=== PATIENT | male | born 1995 | race Caucasian/White ===

== ENCOUNTER 2023-11-19 19:27 | Emergency (ER) | payer MEDICAID, SELFPAY ==
--- NOTE | ~2023-11-19 | XR_ITS ---
EXAMINATION: XR chest 2V CLINICAL INFORMATION: Dizziness COMPARISON: No prior chest x-ray available in our system for comparison at the time of this dictation. TECHNIQUE: XR chest 2V, 2 Views Lungs and Bernard[place]: Both lungs are clear. Pleura: Normal. Costophrenic angles are sharp. No pneumothorax. Heart: The heart is normal in size. Mediastinum: The mediastinum is within normal limits.. Bones: Skeletal structures included are normal for patient's age. XR/XR chest 2V IMPRESSION: No radiographic evidence of acute cardiopulmonary disease.
--- NOTE | 2023-11-19 19:31 | ECG_ITS ---
Test Reason : PALPITATIONS Blood Pressure : / mmHG Vent. Rate : 109 BPM Atrial Rate : 109 BPM P-R Int : 160 ms QRS Dur : 082 ms QT Int : 310 ms P-R-T Axes : 039 055 037 degrees QTc Int : 417 ms Sinus tachycardia Otherwise normal ECG No previous ECGs available Referred By: Mandie Connell Electronically Signed By:Kwabena Kasper
--- NOTE | 2023-11-19 19:48 | ED_ITS ---
HPI - General Adult General Chief complaint: Arrhythmia/Palpitations Stated complaint: Low blood pressure/Palpitations Time Seen by Provider: 11/19/23 21:59 Source: patient, RN notes reviewed, old records reviewed and sales correspondence clerk Mode of arrival: ambulatory Limitations: language barrier History of Present Illness HPI narrative: 28-year-old male who denies any past medical history presents for evaluation of ?feeling weak. ? He reports around noon today while he was eating lunch he feels lightheaded felt weak and ?my watch has been telling me my heart rate was high all day. ? He states that he took his blood pressure earlier today and ?it was 108/72. He denies any chest pain, cough, shortness of breath. He endorses nausea without vomiting Denies any abdominal pain Denies fevers, chills Denies any sick contacts, recent travel No other complaints or concerns at this time Related Data Previous Rx's ?Medication ?Instructions ?Recorded ondansetron 4 mg disintegrating 4 mg PO Q8H PRN nausea and 11/19/23 tablet vomiting #20 tabs Allergies Allergy/AdvReac Type Severity Reaction Status Date / Time Unable to Assess Allergy Verified 11/19/23 19:54 Review of Systems 2 Constitutional: Constitutional: Denies body ache(s), Denies chills, Denies fever(s), Denies headache(s), Reports malaise and Reports weakness Eyes: Eyes: Denies blurry vision ENT: Denies headache(s) and Denies sore throat Cardiovascular: Cardiovascular: Denies chest pain, Denies chest pain at rest, Reports rapid heart rate, Denies irregular heart rhythm, Denies palpitations and Denies dyspnea Respiratory: Respiratory: Denies cough and Denies dyspnea Gastrointestinal: Gastrointestinal: Denies abdominal pain, Denies nausea and Denies vomiting Genitourinary: Genitourinary: Denies dysuria Musculoskeletal: Musculoskeletal: Denies back pain Integumentary/Breasts: Skin/Breast: Denies rash Neurologic: Denies headache(s) and Reports weakness Endocrine: Endocrine: Denies palpitations [facility] Social History Social History Advance Directives: No Advance Directives Information Provided: No Physical Exam ED Vital Signs: Vital Signs - 24 hr 11/19/23 19:51 11/19/23 21:45 Temperature 97.9 F 98.2 F Pulse Rate 120 H 102 H Respiratory Rate 14 18 Blood Pressure 119/80 121/76 Pulse Oximetry 95 97 Oxygen Delivery Method Room Air Room Air BMI result Body Mass Index 26.1 Const General: healthy appearing, comfortable, no acute distress, alert and awake Nutritional Appearance: well nourished Orientation/consciousness: patient oriented x3 HENMT Head: Yes normocephalic and Yes atraumatic Throat: Yes posterior oropharynx normal Eyes Eyelids: Yes eyelids normal Conjunctivae: conjunctivae normal Sclerae: sclerae normal Corneas: corneas normal Pupils: Equal, round and reactive pupils present EOM: EOMs intact bilaterally Neck Neck: Yes full ROM Resp Effort & Inspection: normal respiratory effort, able to speak in complete sentences and not labored Cardio Rate: regular rate Rhythm: regular rhythm GI Inspection: No distended Palpation (GI): Soft to palpation, not firm, nontender, no guarding and not rigid Skin General skin exam: elasticity normal Neuro General: patient oriented x3 Cranial nerves: Yes Equal, round and reactive pupils present and Yes Bilaterally intact EOM present Cognition (Neuro): normal cognition Extrem Other: Moving all extremities well without any obvious deformities Course Course Course Narrative: This is a rapid medical exam performed by Sadia Connell NP: Additional HPI, ROS, PE not included below will be deferred to primary provider. Patient is a 28-year-old English speaking male with no pmhx presenting to the emergency department with complaint of dizziness, lightheadedness. Denies chest pain or shortness of breath. Does report palpitations. Denies history of same. Symptoms began while he was at home, first with sweating, then dizziness, then states he turned yellow, had nausea. Denies current nausea. Mild headache. Plan: EKG, labs, cxr, viral swabs Reevaluation(s) Reevaluation #1: Patient is not orthostatic, he is stable for discharge Time: 23:24 Medical Decision Making Medical Decision Making MDM Narrative: 28-year-old male who denies any past medical history presents for evaluation of vague complaints of weakness, nausea fast heart rate. It does not seem as though he is having true palpitations but is just complaining that his watch is reporting a fast heart rate throughout the day. He indicates an jayne on his phone that states his heart rate has been around 104. His regular during my exam but plan for EKG to confirm sinus rhythm. Patient's labs are significant for a white count 12.4 with a left shift. He does not have any abdominal pain or tenderness, lungs are clear to auscultation. This may be viral shift. Patient's chemistries are within normal limits. His troponins undetectable renal function within normal limits, electrolytes are within normal limits. Chest x-ray is clear. I added on a D-dimer which was negative. Plan for orthostatic vital signs Differential Diagnosis Differential Diagnoses: The differential diagnosis associated with the presentation includes Viral syndrome Influenza COVID-19 Bronchitis Palpitations Hyperthyroidism PE less likely Lab Data MDM Lab Attestation statement: I reviewed the patient's lab results. See above 11/19/23 19:49 11/19/23 19:49 Labs: Lab Results 11/19/23 11/19/23 Range/Units 19:49 20:10 WBC 12.4 H (4.8-10.8) X10*3/uL RBC 5.49 (4.60-5.80) X10*6/uL Hgb 16.6 (14.0-18.0) g/dl Hct 45.9 (42.0-52.0) % MCV 83.6 (80.0-98.0) fL MCH 30.2 (27.0-33.0) pg MCHC 36.2 H (31.0-36.0) g/dl RDW 12.0 (11.0-16.0) % Plt Count 202 (160-400) X10*3/uL MPV 11.6 (9.4-12.4) fL Immature Gran % (Auto) 0.3 (0.0-0.4) % Neut % (Auto) 89.8 H (45-73) % Lymph % (Auto) 4.1 L (20-40) % [place] % (Auto) 5.1 (2-11) % Eos % (Auto) 0.5 (0-4) % Baso % (Auto) 0.2 (0-2) % Lymph # (Auto) 0.5 L (1.2-4.9) X10*3/uL [place] # (Auto) 0.6 (0.1-1.2) X10*3/uL Eos # (Auto) 0.1 (0.0-0.4) X10*3/uL Baso # (Auto) 0.0 (0.0-0.2) X10*3/uL Abs Immat Gran (auto) 0.04 H (0.00-0.03) X10*3/uL Absolute Neuts (auto) 11.1 H (2.0-8.3) x10*3/uL Absolute Nucleated RBC 0.000 (0.0-0.012) X10*3/uL Nucleated RBC % (auto) 0.0 (0.0-0.2) /100WBC PT 12.4 (11.1-13.3) SEC INR 1.0 (0.9-1.1) D-Dimer High Sensitivty < 150 NG/ML Sodium 138 (135-145) mmol/L Potassium 3.4 (3.3-5.1) mmol/L Chloride 104 (96-108) mmol/L Carbon Dioxide 23 (22-29) mmol/L Anion Gap 14 (12-20) BUN 13 (9-16) mg/dL Creatinine 0.92 (0.5-1.4) mg/dL Estim Creat Clear Calc 113.5 Estimated GFR > 60 Random Glucose 105 (60-115) mg/dL Calcium 9.2 (8.4-10.2) mg/dL Total Bilirubin 1.0 (0.0-1.0) mg/dL AST 19 (5-37) U/L ALT 26 (0-40) U/L Alkaline Phosphatase 71 (39-117) U/L Troponin I High Sens < 2.7 (<3.5-35.0) ng/L Total Protein 7.8 (6.5-8.0) g/dL Albumin 4.6 (3.5-5.0) g/dL TSH 0.62 (0.32-4.0) uIU/mL Influenza Type A (PCR) NEGATIVE (Negative) Influenza Type B (PCR) NEGATIVE (Negative) RSV RNA Qual (PCR) NEGATIVE (Negative) SARS-CoV-2 RNA (RT-PCR) NEGATIVE (Negative) Independent Interpretation I performed an independent interpretation of an: EKG and Plain X-Ray (No focal infiltrates or effusions) Interpretation: Sinus tachycardia rate of [address] segment changes Discharge Plan Discharge Clinical Impression: Sinus tachycardia, Weakness Patient Disposition: Home, Self-Care Instructions: Tachycardia (ED) Additional Instructions: Your symptoms may be related to a virus. You may use ibuprofen/Tylenol for pain or headaches. Use Zofran as needed for nausea or vomiting Drink lots of fluids Your workup in the ER today was reassuring Follow-up with your primary doctor Prescriptions: New ondansetron 4 mg tablet,disintegrating 4 mg PO Q8H PRN (Reason: nausea and vomiting) Qty: 20 0RF Print Language: English
[2023-11-19 19:51] VITALS: BP 119/80; PULSE 120; RESP 14; TEMP 36.6; O2SAT 95; BMI 26.1
[2023-11-19 19:52] LABS: MANUAL DIFF FLAG NO
[2023-11-19 19:53] LABS: Basophils Percent Auto 0.2 % (0-2); Eosinophils Absolute Auto 0.1 X10*3/uL (0.0-0.4); Eosinophils Percent Auto 0.5 % (0-4); Hematocrit 45.9 % (42.0-52.0); Hemoglobin 16.6 g/dl (14.0-18.0); Imm Gran Abs Auto 0.04 X10*3/uL (0.00-0.03); Imm Gran Pct Auto 0.3 % (0.0-0.4); Lymphocytes Absolute Auto 0.5 X10*3/uL (1.2-4.9); Lymphocytes Percent Auto 4.1 % (20-40); Mean Corpuscular HGB Conc 36.2 g/dl (31.0-36.0); Mean Corpuscular Hemoglobin 30.2 pg (27.0-33.0); Mean Corpuscular Volume 83.6 fL (80.0-98.0); Mean Platelet Volume 11.6 fL (9.4-12.4); Monocytes Absolute Auto 0.6 X10*3/uL (0.1-1.2); Monocytes Percent Auto 5.1 % (2-11); Neutrophils Absolute Auto 11.1 x10*3/uL (2.0-8.3); Neutrophils Percent Auto 89.8 % (45-73); Platelet Count 202 X10*3/uL (160-400); Red Blood Count 5.49 X10*6/uL (4.60-5.80); White Blood Count 12.4 X10*3/uL (4.8-10.8)
[2023-11-19 19:58] LABS: Prothrombin Time 12.4 SEC (11.1-13.3)
[2023-11-19 20:23] LABS: Alanine Aminotransferase 26 U/L (0-40); Albumin Level 4.6 g/dL (3.5-5.0); Alkaline Phosphatase 71 U/L (39-117); Anion Gap 14 (12-20); Aspartate Amino Transferase 19 U/L (5-37); Blood Urea Nitrogen 13 mg/dL (9-16); Calcium 9.2 mg/dL (8.4-10.2); Carbon Dioxide 23 mmol/L (22-29); Chloride 104 mmol/L (96-108); Creatinine Clr Calc Pharmacy 113.5; Estimated Glomerular Filt Rate > 60; Glucose Random 105 mg/dL (60-115); Potassium 3.4 mmol/L (3.3-5.1); Sodium 138 mmol/L (135-145); Total Protein 7.8 g/dL (6.5-8.0)
[2023-11-19 20:32] LABS: Troponin-I High Sensitivity < 2.7 ng/L (<3.5-35.0)
[2023-11-19 20:38] LABS: TSH reflex Free T4 0.62 uIU/mL (0.32-4.0)
[2023-11-19 21:01] LABS: Influenza A PCR NEGATIVE (Negative); Influenza B PCR NEGATIVE (Negative); Resp Syncy Virus RNA Qual PCR NEGATIVE (Negative); SARS COV2 PCR INHOUSE NEGATIVE (Negative)
[2023-11-19 21:45] VITALS: BP 121/76; PULSE 102; RESP 18; TEMP 36.8; O2SAT 97
[2023-11-19 22:24] LABS: D Dimer High Sensitivity < 150 NG/ML
[2023-11-19 23:11] VITALS: BP 121/76; PULSE 99
[2023-11-19 23:23] VITALS: BP 124/85; PULSE 109
[2023-11-19 23:24] VITALS: BP 111/80; PULSE 116
[2023-11-19 23:56] VITALS: BP 111/80; PULSE 113; RESP 16; TEMP 36.6; O2SAT 97
[2023-11-19] MEDS: Ondansetron ODT 4 MG TAB.RAPDIS TRANSLINGU (23:58)
[2023-11-19] MEDS: Ibuprofen 600 MG TABLET PO (23:58)
== END 2023-11-20 00:04 | disposition home or self-care (01) ==
PROVIDERS: Physician Assistant; Registered Nurse Emergency; Emergency Provider Internal Medicine
DX: R00.0 Tachycardia, unspecified (principal); I49.9 Cardiac arrhythmia, unspecified; R00.2 Palpitations; R53.1 Weakness; Z11.52 Encounter for screening for COVID-19; Z20.822 Contact with and (suspected) exposure to COVID-19; Z79.899 Other long term (current) drug therapy
CPT/HCPCS: 0241U; 36415; 71046; 80053; 84443; 84484; 85025; 85379; 85610; 93005; 99283; 99284

== ENCOUNTER → 2023-11-19 19:31 | Outpatient (BNV) | payer MEDICAID, SELFPAY | PROVIDERS: Emergency Provider Internal Medicine; Visit Provider Internal Medicine Cardiovascular Disease | DX: R00.0 Tachycardia, unspecified (principal) | CPT/HCPCS: 93010 ==

== ENCOUNTER 2024-04-12 12:34 | Inpatient (IN) | payer MEDICAID, OTHER, SELFPAY ==
[2024-04-12] VITALS (7 sets, daily range): BP systolic 109–127; BP diastolic 56–76; PULSE 72–107; RESP 14–20; TEMP 36.2–37.1; O2SAT 97–99; BMI 25.3; BMI 23.7
--- NOTE | 2024-04-12 12:36 | ED.GENADULT ---
HPI - General Adult General Chief complaint: GI Bleed Stated complaint: black [id number] Time Seen by Provider: 04/12/24 14:08 Source: patient Mode of arrival: ambulatory Limitations: no limitations and language barrier History of Present Illness ED Provider: Ángel Taylor PA-C HPI narrative: 28-year-old [place]-speaking male with history of peptic ulcer disease in the past requiring blood transfusion and hospitalization in [place] in 2020 who presents to the ER for evaluation of melena and coffee-ground emesis that started yesterday. He states he had 2 dark brown bowel movements yesterday. This morning he woke up at 3am and had a large volume black bowel movement and an episode of dark, coffee ground vomiting. He felt flushed, with cold sweats and tingling in his hands. He reported lightheadedness, dizziness and shortness of breath. No abdominal pain. No BMs since overnight. He denies any alcohol use. He reports he takes occasional Advil, not daily. He has been off of his omeprazole. complaint: melena, coffee ground emesis Onset (ago): day(s) (1) Severity: moderate Relieving factors: none Exacerbating factors: none Associated symptoms: malaise Treatments prior to arrival: none Related Data Previous Rx's ?Medication ?Instructions ?Recorded ondansetron 4 mg disintegrating 4 mg PO Q8H PRN nausea and 11/19/23 tablet vomiting #20 tabs Allergies Allergy/AdvReac Type Severity Reaction Status Date / Time No Known Allergies Allergy Verified 04/12/24 12:38 Review of Systems Review of Systems: Yes all other systems are reviewed and are negative PMFSH Past Medical History Medical History PUD (peptic ulcer disease) Social History Social History Advance Directives: No Do you have a plan to hurt others: No Plan Physical Exam ED Vital Signs: Vital Signs - 24 hr 04/12/24 12:36 04/12/24 14:15 04/12/24 14:15 Temperature 98.2 F 98.7 F Pulse Rate 103 H 87 87 Respiratory Rate 18 18 Blood Pressure 120/76 111/70 112/67 Pulse Oximetry 98 99 Oxygen Delivery Method Room Air Room Air 04/12/24 14:16 04/12/24 14:17 Temperature Pulse Rate 97 107 H Respiratory Rate Blood Pressure 112/69 112/73 Pulse Oximetry Oxygen Delivery Method BMI result Body Mass Index 25.3 Appearance: Alert. Pale. Oriented X3. No acute distress. Head: normocephalic, atraumatic. Eyes: Pupils equal, round and reactive to light. ENT: Pharynx normal. No tonsillar swelling or exudate. Neck: Normal inspection. Neck supple. CVS: Normal heart rate and rhythm. Pulses normal. Respiratory: No respiratory distress. Breath sounds normal. Abdomen: Soft and nontender. +BS x4 Skin: Skin warm and dry. Normal skin color. Normal skin turgor. No rashes. Extremities: No lower extremity edema. No joint swelling. Neuro/psych: Oriented X 3. No motor deficit. No sensory deficit. CN II-XII intact. Normal speech and cognition. Course Course Course Narrative: Patient is a 28-year-old [place] speaking male presenting to the emergency department with complaint of dark black stool since yesterday morning, this morning was vomiting coffee ground emesis. Denies abdominal pain. [place] cramping, tingling to hands, dizziness. States previously had similar symptoms in [facility], and was hospitalized for 8 days. Plan: labs including T&S Medications Administered Discontinued Medications Generic Name Dose Route Start Last Admin Trade Name Freq PRN Reason Stop Dose Admin Pantoprazole Sodium 40 mg 04/12/24 14:09 04/12/24 14:33 Pantoprazole Sodium 40 Mg/10 Ml Vial IVPUSH 04/12/24 14:10 40 mg ONCE ONE Administration Procedures EJ/Peripheral Line Arm R: Time Out Performed: Yes Skin Cleansed in Sterile Fashion: Yes Size (gauge): 18 IV Secured and Dressing Applied: Yes Patient Tolerated Procedure: no complications Medical Decision Making Medical Decision Making MDM Narrative: 28-year-old male with history of peptic ulcer disease, reportedly a strangulated ulcer that required EGD, transfusion, an 8 day hospitalization and [place] back in 2020 presents to the ER for evaluation of melena x3 and coffee-ground emesis x1. Symptoms started yesterday. Last large volume melanotic episode was at 03:00 today. Patient has a photo of the bowel movement and this was reviewed. Digital rectal exam today is revealing for a scant amount of black stool. His hemoglobin is down to 13.5 from a baseline of 16.6 in November. HR 107 and BP stable. Will plan to admit to the hospital for monitoring, trending H/H. GI consulted. IV PPI given. 18G PIV in the right AC placed. vendor management consultant used to discuss plan and patient is in agreement. All questions were answered. Differential Diagnosis Differential Diagnoses: The differential diagnosis associated with the presentation includes UGIB 2/2 PUD, gastritis, AVM, [place] lesion, varices Admission/Observation Consideration of admission/observation: Escalation of care including admission/observation considered Consult Healthcare Provider Management of the patient was discussed with: Hospitalist and Comb Setter Dr. Ortiz consulted Lab Data MDM Lab Attestation statement: I reviewed the patient's lab results. Acute anemia consistent with acute blood loss compared to prior. Elevated BUN consistent with upper GI bleed 04/12/24 12:44 04/12/24 12:44 Labs: Lab Results 04/12/24 04/12/24 Range/Units 12:44 15:18 WBC 9.6 (4.8-10.8) X10*3/uL RBC 4.50 L (4.60-5.80) X10*6/uL Hgb 13.5 L (14.0-18.0) g/dl Hct 37.8 L (42.0-52.0) % MCV 84.0 (80.0-98.0) fL MCH 30.0 (27.0-33.0) pg MCHC 35.7 (31.0-36.0) g/dl RDW 12.0 (11.0-16.0) % Plt Count 222 (160-400) X10*3/uL MPV 11.6 (9.4-12.4) fL Immature Gran % (Auto) 0.3 (0.0-0.4) % Neut % (Auto) 77.4 H (45-73) % Lymph % (Auto) 16.7 L (20-40) % [place] % (Auto) 5.1 (2-11) % Eos % (Auto) 0.3 (0-4) % Baso % (Auto) 0.2 (0-2) % Lymph # (Auto) 1.6 (1.2-4.9) X10*3/uL [place] # (Auto) 0.5 (0.1-1.2) X10*3/uL Eos # (Auto) 0.0 (0.0-0.4) X10*3/uL Baso # (Auto) 0.0 (0.0-0.2) X10*3/uL Abs Immat Gran (auto) 0.03 (0.00-0.03) X10*3/uL Absolute Neuts (auto) 7.4 (2.0-8.3) x10*3/uL Absolute Nucleated RBC 0.000 (0.0-0.012) X10*3/uL Nucleated RBC % (auto) 0.0 (0.0-0.2) /100WBC PT 12.8 H (10.9-12.4) SEC INR 1.1 (0.9-1.1) APTT 31.4 (26.0-36.8) SEC Sodium 139 (135-145) mmol/L Potassium 4.1 D (3.3-5.1) mmol/L Chloride 107 (96-108) mmol/L Carbon Dioxide 23 (22-29) mmol/L Anion Gap 13 (12-20) BUN 28 H (9-16) mg/dL Creatinine 0.88 (0.5-1.4) mg/dL Estim Creat Clear Calc 118.7 Estimated GFR > 60 Random Glucose 141 H (60-115) mg/dL Calcium 9.1 (8.4-10.2) mg/dL Total Bilirubin 0.6 (0.0-1.0) mg/dL AST 11 (5-37) U/L ALT 16 (0-40) U/L Alkaline Phosphatase 55 (39-117) U/L Total Protein 7.3 (6.5-8.0) g/dL Albumin 4.4 (3.5-5.0) g/dL Stool Occult Blood POSITIVE (NEGATIVE) External Record Review External record reviewed: Prior outpatient labs Tests considered The following testing was considered but not selected: GI bleed CT scan considered however low suspicion for lower GI bleed or active GI bleed at this time Prescription Management I considered prescription management with: Other (PPI, antiemetics) Chronic Conditions Patient?s care impacted by: Other (PUD) Critical Care Time Critical Care Time Critical Care Time: Yes Total Critical Care Time: 36 Attestation: I have personally provided critical care time exclusive of time spent on separately billable procedures. Time includes review of lab data, radiology results, discussion with consultants, and monitoring for potential decompensation. Intervention performed as documented. Discharge Plan Discharge Clinical Impression: Melena, Coffee ground emesis, Acute blood loss anemia Patient Disposition: Admitted As Inpatient
[2024-04-12 12:48] LABS: MANUAL DIFF FLAG NO
[2024-04-12 12:50] LABS: Basophils Percent Auto 0.2 % (0-2); Eosinophils Percent Auto 0.3 % (0-4); Hematocrit 37.8 % (42.0-52.0); Hemoglobin 13.5 g/dl (14.0-18.0); Imm Gran Abs Auto 0.03 X10*3/uL (0.00-0.03); Imm Gran Pct Auto 0.3 % (0.0-0.4); Lymphocytes Absolute Auto 1.6 X10*3/uL (1.2-4.9); Lymphocytes Percent Auto 16.7 % (20-40); Mean Corpuscular HGB Conc 35.7 g/dl (31.0-36.0); Mean Platelet Volume 11.6 fL (9.4-12.4); Monocytes Absolute Auto 0.5 X10*3/uL (0.1-1.2); Monocytes Percent Auto 5.1 % (2-11); Neutrophils Absolute Auto 7.4 x10*3/uL (2.0-8.3); Neutrophils Percent Auto 77.4 % (45-73); Platelet Count 222 X10*3/uL (160-400); White Blood Count 9.6 X10*3/uL (4.8-10.8)
[2024-04-12 12:55] LABS: INTERNATIONAL NORM RATIO 1.1 (0.9-1.1); Prothrombin Time 12.8 SEC (10.9-12.4)
[2024-04-12 12:58] LABS: Partial Thromboplastin Time 31.4 SEC (26.0-36.8)
[2024-04-12 13:07] LABS: Alanine Aminotransferase 16 U/L (0-40); Albumin Level 4.4 g/dL (3.5-5.0); Alkaline Phosphatase 55 U/L (39-117); Anion Gap 13 (12-20); Aspartate Amino Transferase 11 U/L (5-37); Bilirubin Total 0.6 mg/dL (0.0-1.0); Blood Urea Nitrogen 28 mg/dL (9-16); Calcium 9.1 mg/dL (8.4-10.2); Carbon Dioxide 23 mmol/L (22-29); Chloride 107 mmol/L (96-108); Creatinine Clr Calc Pharmacy 118.7; Estimated Glomerular Filt Rate > 60; Glucose Random 141 mg/dL (60-115); Potassium 4.1 mmol/L (3.3-5.1); Sodium 139 mmol/L (135-145); Total Protein 7.3 g/dL (6.5-8.0)
[2024-04-12] MEDS: Pantoprazole Sodium 40 MG/10 ML VIAL IVPUSH ×2 (14:33→21:21)
--- NOTE | 2024-04-12 14:35 | PC.NURSE ---
18gIV placed in the right AC - patent/intact. medication administered per provider order. ED provider bedside speaking w/ pt about plan of care. pt aware of plan of care in regards to being admitted/having general surgery consult completed. pt otherwise resting in no apparent distress. no sob/wob noted. respirations even/unlabored. plan of care ongoing. call garcia placed within reach.
--- NOTE | 2024-04-12 15:23 | P.HPHOSP_ITS ---
History of Present Illness Date of Service: 04/12/24 Chief Complaint: Hematemesis , Melena A 28 years old male with PMH of PUD who is not taking Omeprazole presenting with 1 day of Hematemesis and MElena. The patient reports having similar incident in 2020 that required blood transfusion and EGD showing PUD at that time. treated with PPI with good response but for a while now he stopped taking PPI and has been taking Advil. In ED found to have positive occult stool and drop in Hb from around 16 to 13. Admitted for further work ip and management. Review of Systems 2 Review of Systems: No fever, chills or weakness No chest pain, palpitation No shortness of breath or coughing reporting abdominal pain, nausea and episode of vomiting No urinary symptoms No any rash or wounds PMFSH Medical History PUD (peptic ulcer disease) Surgical History (Updated 04/13/24 @ 14:44 by Ama Espinal RN) H/O endoscopy Social History Household Members: Spouse Housing: Apartment Are you a primary health care sanitary technician to a significant other at home: No Do you presently have visiting nurse or other home services: No Patient Tobacco Use Status: Never used Tobacco Smoked in Last 30 Days: No Patient Interested in Nicotine Replacement: No Patient Given Instructions on How to Stop Smoking: No Second Hand Smoke Exposure: No Use of substances other than those prescribed or required for medical reasons: No Currently Displaying Signs/Symptoms of Drug Intoxication Withdrawal: No Any prior treatment program specific to substance use: No Have you been hit, kicked, punched, or otherwise hurt by someone within the past year? If so, by whom?: No Do you feel safe in your current relationship?: Yes Is there a partner from a previous relationship who is making you feel unsafe now?: No Are you made to feel afraid or neglected: No Are you DNR?: No Advance Directives: No Advance Directives Information Provided: No (Declined) Advance Directives on File: No Do you have a plan to hurt others: No Plan Recently lost weight without trying: No How much weight loss: Not applicable Eating poorly because of decreased appetite: No Nutrition screen score: 0 Nutrition Risks: No Nutritional Risk Poor oral hygiene: No service: No Meds Allergies Allergy/AdvReac Type Severity Reaction Status Date / Time No Known Allergies Allergy Verified 04/13/24 14:45 Home Medications ?Medication ?Instructions ?Recorded ?Confirmed ?Last Taken ?Type No Known Home Meds 04/12/24 04/12/24 Unknown History Physical Exam 2 Vital Signs and Narrative: Vital Signs: Last Vital Signs Temp 98.7 F 04/12/24 14:15 Pulse 107 H 04/12/24 14:17 Resp 18 04/12/24 14:15 BP 112/73 04/12/24 14:17 Pulse Ox 99 04/12/24 14:15 O2 Del Method Room Air 04/12/24 14:15 BMI result Body Mass Index 25.3 Const: Other: Constitutional : Awake, interactive, not in distress Neck : Normal inspection, Supple Cardiovascular : RRR, no JVP, no lower extremity edema Respiratory : good bilateral air entry, no crackles, wheezes or rhonchi Gastrointestinal: soft, lax, Normal bowel sounds, Non tender Skin : Warm, Dry Neurological : Alert & oriented x3, No focal deficit Results Labs 04/13/24 05:57 04/13/24 05:57 Labs: Laboratory Results - last 24 hr 04/12/24 12:44 MCV 84.0 MCH 30.0 MCHC 35.7 RDW 12.0 Plt Count 222 MPV 11.6 Immature Gran % (Auto) 0.3 Neut % (Auto) 77.4 H Lymph % (Auto) 16.7 L [place] % (Auto) 5.1 Eos % (Auto) 0.3 Baso % (Auto) 0.2 Lymph # (Auto) 1.6 [place] # (Auto) 0.5 Eos # (Auto) 0.0 Baso # (Auto) 0.0 Abs Immat Gran (auto) 0.03 Absolute Neuts (auto) 7.4 Absolute Nucleated RBC 0.000 Nucleated RBC % (auto) 0.0 PT 12.8 H INR 1.1 APTT 31.4 Anion Gap 13 Estim Creat Clear Calc 118.7 Estimated GFR > 60 Random Glucose 141 H Calcium 9.1 Total Bilirubin 0.6 AST 11 ALT 16 Alkaline Phosphatase 55 Total Protein 7.3 Albumin 4.4 Assessment and Plan (1) Coffee ground emesis: Status: Acute (2) Melena: Status: Acute (3) Acute blood loss anemia: Status: Acute Plan A 28 years old male with PMH of PUD who is not taking Omeprazole presenting with 1 day of Hematemesis and MElena. Acute blood loss anemia 2/2 upper GIB w Hematemesis Start PPI IV Carafate QID IVF NPO GI consult Zofran for nausea DVT PPx Early ambulation, SCDs The patient will need 2 overnight hospital stay given GI bleed, need for EGD and possible need for blood transfusion. Quality Stroke Does the patient have a stroke diagnosis?: No VTE Prior VTE?: No VTE Risk Level:: Medical - low VTE Device Contraindication: N/A - Device Ordered VTE Drug Contraindication: Treatment Not Indicated
[2024-04-12 15:26] LABS: OBS Int Ctl Valid YES; OBS1 POSITIVE (NEGATIVE)
[2024-04-12] MEDS: 0.9 % Sodium Chloride Flush 3 ML SYRINGE IVFLUSH (15:40)
[2024-04-12] MEDS: ondansetron HCL 4 MG/2 ML VIAL IVPUSH (15:40)
[2024-04-12] MEDS: Lactated Ringers 1,000 ML 80 ML IVCONT (15:41)
--- NOTE | 2024-04-12 15:41 | PC.NURSE ---
IVF/medication administered per provider order. pt pending admission at this time. plan of care ongoing.
[2024-04-12] MEDS: Sucralfate 1 GM TABLET PO ×2 (16:25→21:21)
--- NOTE | 2024-04-12 19:13 | PHA.MEDREC ---
Addendum entered by Kwasi Matthews 04/12/24 19:14: Reviewed Original Note: Pharmacy Consult ? Medication Reconciliation Pharmacy has completed the medication reconciliation. Spoke to patient through alto singer service (Maxine) patient states he is not taking any medication.
[2024-04-13] VITALS (10 sets, daily range): BP systolic 94–117; BP diastolic 42–75; PULSE 62–78; RESP 14–20; TEMP 36–37.2; O2SAT 97–100
--- NOTE | 2024-04-13 01:40 | CONS_ITS ---
DATE OF SERVICE: 04/12/2024 REFERRING PHYSICIAN: QUIQUE Jones REASON FOR CONSULTATION: Melena and coffee-ground emesis. HISTORY OF PRESENT ILLNESS: The patient is a 28-year-old male, who was admitted to the hospital after presenting to the emergency room with 1 day of black stools and coffee-grounds emesis. This started at 3:00 a.m. this morning with 1 episode of coffee-ground vomiting followed by a black stool. He presented to the emergency room, where he was evaluated. He describes a history of previous peptic ulcer disease 3 years ago, treated endoscopically. He did not require surgery. He had been on omeprazole, but currently stop this at some point and uses Advil on a p.r.n. basis. He denies tobacco and alcohol use. PAST MEDICAL HISTORY: Peptic ulcer disease as above. CURRENT MEDICATIONS: His current medication list is reviewed in the chart. ALLERGIES: THERE ARE NONE REPORTED. FAMILY HISTORY: Negative for upper GI malignancy. SOCIAL HISTORY: He denies substance abuse. REVIEW OF SYSTEMS: SKIN: No pruritus. HEENT: Negative. CARDIOPULMONARY: He denies shortness of breath or chest pain. GASTROINTESTINAL: As above. GENITOURINARY: Negative. NEUROPSYCHIATRIC: Negative. PHYSICAL EXAMINATION: GENERAL: Shows a pleasant male, lying in bed. VITAL SIGNS: Reviewed in electronic medical record and are stable. SKIN: Anicteric. Multiple tattoos are present. HEENT: Shows no scleral icterus. NECK: Without lymphadenopathy or thyromegaly. LUNGS: Clear. HEART: Shows a regular rate and rhythm. S1, S2. No murmur. ABDOMEN: Soft without focal masses or tenderness. Bowel sounds are present. No organomegaly is noted. EXTREMITIES: Without edema. LABORATORY DATA: Reviewed. IMPRESSION: Coffee-ground emesis with melena. This appears consistent with an upper GI bleed. Currently, he appears stable without any active bleeding. His hematocrit was 37.8 down slightly from 45.9 in November of this year. He has not had any further bleeding since admission. I discussed endoscopy with him. This will be arranged for tomorrow. He understands risks and benefits and agrees to proceed. In the interim, I agree with monitoring his hematocrit and treating him with a proton pump inhibitor. Thanks for asking me to see him. I will follow him in the hospital with you. MD DORI Alberts/BREANA / [phone]
[2024-04-13] MEDS: Lactated Ringers 1,000 ML 80 ML IVCONT ×3 (02:32→17:39)
[2024-04-13 06:41] LABS: MANUAL DIFF FLAG NO
[2024-04-13 07:02] LABS: Alanine Aminotransferase 12 U/L (0-40); Albumin Level 3.5 g/dL (3.5-5.0); Alkaline Phosphatase 44 U/L (39-117); Anion Gap 9 (12-20); Aspartate Amino Transferase 12 U/L (5-37); Bilirubin Total 0.7 mg/dL (0.0-1.0); Blood Urea Nitrogen 15 mg/dL (9-16); Calcium 8.4 mg/dL (8.4-10.2); Carbon Dioxide 26 mmol/L (22-29); Chloride 107 mmol/L (96-108); Creatinine Clr Calc Pharmacy 118.7; Estimated Glomerular Filt Rate > 60; Glucose Random 95 mg/dL (60-115); Potassium 3.4 mmol/L (3.3-5.1); Sodium 139 mmol/L (135-145); Total Protein 5.7 g/dL (6.5-8.0)
[2024-04-13 07:04] LABS: Basophils Percent Auto 0.5 % (0-2); Eosinophils Absolute Auto 0.1 X10*3/uL (0.0-0.4); Eosinophils Percent Auto 2.2 % (0-4); Hematocrit 32.2 % (42.0-52.0); Imm Gran Abs Auto 0.02 X10*3/uL (0.00-0.03); Imm Gran Pct Auto 0.3 % (0.0-0.4); Lymphocytes Absolute Auto 2.4 X10*3/uL (1.2-4.9); Lymphocytes Percent Auto 36.6 % (20-40); Mean Corpuscular HGB Conc 34.2 g/dl (31.0-36.0); Mean Corpuscular Hemoglobin 29.3 pg (27.0-33.0); Mean Corpuscular Volume 85.9 fL (80.0-98.0); Mean Platelet Volume 11.8 fL (9.4-12.4); Monocytes Absolute Auto 0.5 X10*3/uL (0.1-1.2); Monocytes Percent Auto 7.9 % (2-11); Neutrophils Absolute Auto 3.4 x10*3/uL (2.0-8.3); Neutrophils Percent Auto 52.5 % (45-73); Platelet Count 166 X10*3/uL (160-400); Red Blood Count 3.75 X10*6/uL (4.60-5.80); Red Cell Distribution Width 12.1 % (11.0-16.0); White Blood Count 6.5 X10*3/uL (4.8-10.8)
--- NOTE | 2024-04-13 09:10 | MHC.CM.PN ---
CM met with Patient and his Friend at bedside, with the assist of a [facility] [place] Weight Analyst. 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 Home/self care is the goal and CM has initiated and will follow for dc planning. Patient has no PCP nor HCP.
[2024-04-13] MEDS: Pantoprazole Sodium 40 MG/10 ML VIAL IVPUSH (10:48)
--- NOTE | 2024-04-13 10:59 | P.PNGI_ITS ---
Subjective Subjective Date of Service: 04/13/24 Interval History: no bleeding overnight no abd pain Critical Care Time (minutes): 0 Physical Exam 2 Vital Signs: Vital Signs: Last Vital Signs Temp 98.5 F 04/13/24 07:20 Pulse 71 04/13/24 07:20 Resp 18 04/13/24 07:20 BP 104/56 L 04/13/24 07:20 Pulse Ox 97 04/13/24 07:20 O2 Del Method Room Air 04/13/24 07:20 BMI result Body Mass Index 23.7 Const: Other: awake and alert GI: Other: abdomen is soft and nontender Objective Data Labs 04/13/24 05:57 04/13/24 05:57 Procedures Date of Service Date of Service: 04/13/24 Progress Note: A&P Assessment and plan (1) Melena: Status: Acute Assessment and Plan: appears stable He is aware of risks and benefits of endoscopy and agrees to proceed. Time Spent With Patient Time: Total time managing care of this patient today ____ minutes. Quality Stroke Does the patient have a stroke diagnosis?: No VTE Prior VTE?: No VTE Risk Level:: Medical - moderate - high VTE Device Contraindication: N/A - Device Ordered VTE Drug Contraindication: Treatment Not Indicated
--- NOTE | 2024-04-13 14:49 | PC.NURSE ---
Patient arrived to [facility] with one PRN angio, #18 right AC. Site asymptomatic, flushed well.
--- NOTE | 2024-04-13 14:52 | P.CONAN_ITS ---
HPI - Anesthesia Eval Consult details Narrative: 28 yo M presenting for EGD. Admitted for coffee ground emesis. History of ulcers. PMF Active Problems Active Problems: All Active Problems Acute blood loss anemia (Acute) Coffee ground emesis (Acute) Melena (Acute) Past Medical History Medical History PUD (peptic ulcer disease) Family History Family history of problems with anesthesia: No Surgical History Surgical History (Updated 04/13/24 @ 14:44 by Ama Espinal RN) H/O endoscopy History of Problems with Anesthesia: No Social History Social History Household Members: Spouse Housing: Apartment Are you a primary wound care physician to a significant other at home: No Do you presently have visiting nurse or other home services: No Patient Tobacco Use Status: Never used Tobacco Smoked in Last 30 Days: No Patient Interested in Nicotine Replacement: No Patient Given Instructions on How to Stop Smoking: No Second Hand Smoke Exposure: No Use of substances other than those prescribed or required for medical reasons: No Currently Displaying Signs/Symptoms of Drug Intoxication Withdrawal: No Any prior treatment program specific to substance use: No Have you been hit, kicked, punched, or otherwise hurt by someone within the past year? If so, by whom?: No Do you feel safe in your current relationship?: Yes Is there a partner from a previous relationship who is making you feel unsafe now?: No Are you made to feel afraid or neglected: No Are you DNR?: No Advance Directives: No Advance Directives Information Provided: No (Declined) Advance Directives on File: No Do you have a plan to hurt others: No Plan Recently lost weight without trying: No How much weight loss: Not applicable Eating poorly because of decreased appetite: No Nutrition screen score: 0 Nutrition Risks: No Nutritional Risk Poor oral hygiene: No service: No Meds Allergies Allergy/AdvReac Type Severity Reaction Status Date / Time No Known Allergies Allergy Verified 04/13/24 14:45 Active Medications: Current Medications Acetaminophen (Acetaminophen 325 Mg Tablet) 650 mg PO Q6H PRN PRN Reason: Pain, Mild (Pain Scale 1-3), fever or headache Calcium Carbonate (Calcium Carbonate 750 Mg Tab.Chew) 750 mg PO Q4H PRN PRN Reason: Heartburn Lactated Ringer's (Lr) 1,000 mls @ 80 mls/hr IVCONT .[id number] [facility] Last Admin: 04/13/24 02:32 Dose: 80 mls/hr Lactated Ringer's (Lr) 1,000 mls @ 80 mls/hr IVCONT .[id number] [facility] Magnesium Hydroxide (Milk Of Magnesia 30 Ml Oral.Susp) 30 ml PO DAILY PRN PRN Reason: Constipation Melatonin (Melatonin 3 Mg Tablet) 6 mg PO BEDTIME PRN PRN Reason: Insomnia Ondansetron HCl (Ondansetron Hcl 4 Mg/2 Ml Vial) 4 mg IVPUSH Q8H PRN PRN Reason: Nausea and Vomiting Pantoprazole Sodium (Pantoprazole Sodium 40 Mg/10 Ml Vial) 40 mg IVPUSH Q12H [facility] Last Admin: 04/13/24 10:48 Dose: 40 mg Sodium Chloride (0.9 % Sodium Chloride Flush 3 Ml Syringe) 3 ml IVFLUSH QSHIFT [facility] Last Admin: 04/13/24 07:59 Dose: Not Given Sucralfate (Sucralfate 1 Gm Tablet) 1 gm PO QIDACHS [facility] Last Admin: 04/13/24 10:50 Dose: Not Given Home Medications ?Medication ?Instructions ?Recorded ?Confirmed ?Last Taken ?Type No Known Home Meds 04/12/24 04/12/24 Unknown History Exam Exam Date and Time: 04/13/24 1450 Height,Weight and Vital Signs: Height 5 ft 8.11 in Weight 70.9 kg Last Vital Signs Temp 97.2 F 04/13/24 14:40 Pulse 74 04/13/24 14:40 Resp 16 04/13/24 14:40 BP 110/59 L 04/13/24 14:40 Pulse Ox 98 04/13/24 14:40 O2 Del Method Room Air 04/13/24 14:40 Pertinent Lab Results Pertinent Lab Results: Laboratory Tests 04/12/24 04/12/24 04/13/24 12:44 15:18 05:57 WBC 9.6 6.5 RBC 4.50 L 3.75 L Hgb 13.5 L 11.0 L Hct 37.8 L 32.2 L MCV 84.0 85.9 MCH 30.0 29.3 MCHC 35.7 34.2 RDW 12.0 12.1 Plt Count 222 166 D MPV 11.6 11.8 Immature Gran % (Auto) 0.3 0.3 Neut % (Auto) 77.4 H 52.5 Lymph % (Auto) 16.7 L 36.6 [place] % (Auto) 5.1 7.9 Eos % (Auto) 0.3 2.2 Baso % (Auto) 0.2 0.5 Lymph # (Auto) 1.6 2.4 [place] # (Auto) 0.5 0.5 Eos # (Auto) 0.0 0.1 Baso # (Auto) 0.0 0.0 Abs Immat Gran (auto) 0.03 0.02 Absolute Neuts (auto) 7.4 3.4 Absolute Nucleated RBC 0.000 0.000 Nucleated RBC % (auto) 0.0 0.0 PT 12.8 H INR 1.1 APTT 31.4 Sodium 139 139 Potassium 4.1 D 3.4 Chloride 107 107 Carbon Dioxide 23 26 Anion Gap 13 9 L BUN 28 H 15 Creatinine 0.88 0.88 Estim Creat Clear Calc 118.7 118.7 Estimated GFR > 60 > 60 Random Glucose 141 H 95 Calcium 9.1 8.4 D Total Bilirubin 0.6 0.7 AST 11 12 ALT 16 12 Alkaline Phosphatase 55 44 Total Protein 7.3 5.7 L Albumin 4.4 3.5 Stool Occult Blood POSITIVE Blood Type O Positive Antibody Screen NEGATIVE Airway Mallampati Class: I TM Dist: >3cm Neck ROM: Full Loose/Missing/Broken Teeth: No Heart: S1S2 Lungs: CTAB Assessment and Plan Assessment Anesthesia Assessment: Anesthesia Plan Discussed and Chart Reviewed Final Anesthetic Review Family History of Problems with Anesthesia: No History of Problems with Anesthesia: No NPO: Yes ASA Class: II Final Preanesthetic Review: No Changes in Pt Med Stat, Meds/Allgs Chart Reviewed, Consent Obtained/Reviewed and Anes Risks/Benef Reviewed Patient Risk: Low Procedure Risk: Low Anesthetic Plan Anesthetic Plan: MAC: and Agree w/ Assess. and Plan Disposition: Standard PACU
--- NOTE | 2024-04-13 15:14 | MHC.SHP ---
Pre-Procedural Eval Section A - 24 Hr Update-Section A only Date of Service: 04/13/24 The patient is an INPATIENT: Yes The patient has been examined within 24 hours of the surgical procedure. The History & Physical has been completed within 30 days and I have reviewed it.: Yes Section B - Complete if H&P > 30 days Chief Complaint: coffee grounds emesis Allergies: Allergies Allergy/AdvReac Type Severity Reaction Status Date / Time No Known Allergies Allergy Verified 04/13/24 14:45 Plan I have reviewed the history and physical and performed a pertinent physical examination on my patient. No changes have occurred unless specified. Time Spent With Patient Time: Total time managing care of this patient today ____ minutes.
--- NOTE | 2024-04-13 15:20 | P.PNIM_ITS ---
Subjective Subjective Date of Service: 04/13/24 Interval History: seen and evaluated no reported bleeding overnight Hb dropped to 11 this morning Review of Systems Review of Systems: Yes all other systems are reviewed and are negative Physical Exam 2 Vital Signs: Vital Signs: Last Vital Signs Temp 97.2 F 04/13/24 14:40 Pulse 74 04/13/24 14:40 Resp 16 04/13/24 14:40 BP 110/59 L 04/13/24 14:40 Pulse Ox 98 04/13/24 14:40 O2 Del Method Room Air 04/13/24 14:40 BMI result Body Mass Index 23.7 Const: Other: Constitutional : Awake, interactive, not in distress Neck : Normal inspection, Supple Cardiovascular : RRR, no JVP, no lower extremity edema Respiratory : good bilateral air entry, no crackles, wheezes or rhonchi Gastrointestinal: soft, lax, Normal bowel sounds, Non tender Skin : Warm, Dry Neurological : Alert & oriented x3, No focal deficit Objective Data Active Medications Acetaminophen (Acetaminophen 325 Mg Tablet) 650 mg PO Q6H PRN PRN Reason: Pain, Mild (Pain Scale 1-3), fever or headache Calcium Carbonate (Calcium Carbonate 750 Mg Tab.Chew) 750 mg PO Q4H PRN PRN Reason: Heartburn Lactated Ringer's (Lr) 1,000 mls @ 80 mls/hr IVCONT .[id number] [facility] Last Admin: 04/13/24 02:32 Dose: 80 mls/hr Documented By: JOSE F Lactated Ringer's (Lr) 1,000 mls @ 80 mls/hr IVCONT .[id number] [facility] Last Admin: 04/13/24 14:55 Dose: 80 mls/hr Documented By: ASTON Magnesium Hydroxide (Milk Of Magnesia 30 Ml Oral.Susp) 30 ml PO DAILY PRN PRN Reason: Constipation Melatonin (Melatonin 3 Mg Tablet) 6 mg PO BEDTIME PRN PRN Reason: Insomnia Naloxone HCl (Naloxone Hcl 0.4 Mg/Ml Vial) 0.04 mg IVPUSH Q5M PRN PRN Reason: Excessive sedation or RR < 8 Ondansetron HCl (Ondansetron Hcl 4 Mg/2 Ml Vial) 4 mg IVPUSH Q8H PRN PRN Reason: Nausea and Vomiting Ondansetron HCl (Ondansetron Hcl 4 Mg/2 Ml Vial) 4 mg IVPUSH ONCE PRN PRN Reason: Nausea and Vomiting Stop: 04/13/24 20:56 Pantoprazole Sodium (Pantoprazole Sodium 40 Mg/10 Ml Vial) 40 mg IVPUSH Q12H [facility] Last Admin: 04/13/24 10:48 Dose: 40 mg Documented By: TAZ Sodium Chloride (0.9 % Sodium Chloride Flush 3 Ml Syringe) 3 ml IVFLUSH QSHIFT [facility] Last Admin: 04/13/24 07:59 Dose: Not Given Documented By: TAZ Non-Admin Reason: IV Running Sucralfate (Sucralfate 1 Gm Tablet) 1 gm PO QIDACHS [facility] Last Admin: 04/13/24 10:50 Dose: Not Given Documented By: TAZ Non-Admin Reason: NPO Labs 04/13/24 05:57 04/13/24 05:57 Labs: Laboratory Results - last 24 hr 04/12/24 04/13/24 15:18 05:57 MCV 85.9 MCH 29.3 MCHC 34.2 RDW 12.1 Plt Count 166 D MPV 11.8 Immature Gran % (Auto) 0.3 Neut % (Auto) 52.5 Lymph % (Auto) 36.6 [place] % (Auto) 7.9 Eos % (Auto) 2.2 Baso % (Auto) 0.5 Lymph # (Auto) 2.4 [place] # (Auto) 0.5 Eos # (Auto) 0.1 Baso # (Auto) 0.0 Abs Immat Gran (auto) 0.02 Absolute Neuts (auto) 3.4 Absolute Nucleated RBC 0.000 Nucleated RBC % (auto) 0.0 Anion Gap 9 L Estim Creat Clear Calc 118.7 Estimated GFR > 60 Random Glucose 95 Calcium 8.4 D Total Bilirubin 0.7 AST 12 ALT 12 Alkaline Phosphatase 44 Total Protein 5.7 L Albumin 3.5 Stool Occult Blood POSITIVE Blood Type O Positive Antibody Screen NEGATIVE Assessment and Plan (1) Acute blood loss anemia: Status: Acute (2) Coffee ground emesis: Status: Acute (3) Melena: Status: Acute Plan A 28 years old male with PMH of PUD who is not taking Omeprazole presenting with 1 day of Hematemesis and MElena. Acute blood loss anemia 2/2 upper GIB w Hematemesis Hb dropped to 11 continue PPI IV Carafate QID IVF NPO GI to do EGD today Zofran for nausea DVT PPx Early ambulation, SCDs The patient will need overnight hospital stay given GI bleed, need for EGD and possible need for blood transfusion. Quality Stroke Does the patient have a stroke diagnosis?: No VTE Prior VTE?: No VTE Risk Level:: Medical - low VTE Device Contraindication: N/A - Device Ordered VTE Drug Contraindication: Treatment Not Indicated
--- NOTE | 2024-04-13 15:56 | PM.OP ---
Brief Operative Note Date of Service: 04/13/24 Pre-op diagnosis: UGI Bleed Post-op diagnosis: other (Duodenal ulcer) Procedure: EGD with biopsies Surgeon: Juan Antonio Neal MD Anesthesia: MAC Was an Barrel Filler Head used for this Procedure?: No Estimated blood loss (mL): 2.0 Pathology: other (A. Gastric antrum) Condition: stable Disposition: PACU
--- NOTE | 2024-04-13 15:57 | P.EN_ITS ---
Event Note Date of Service: 04/13/24 Event Note: GI-EGD with biopsies-Full note dictated Findings: 1.Duodenal bulb with a narrow but circumferential area of edema and friability, along with an approximately 5mm area of ulceration with a clean base and no bleeding. 2.Small hiatal hernia 3.Biopsies taken from a normal appearing antrum Rec: Check path and treat H.pylori if positive. long-term and daily PPI. Avoid all aspirin, NSAIDs, alcohol, etc, shelter. Advance diet and discharge by tomorrow. He can be discharged tonight if so desired as well. Thanks Time Spent With Patient Time: Total time managing care of this patient today ____ minutes.
--- NOTE | 2024-04-13 16:41 | OP_ITS ---
DATE OF SERVICE: 04/13/2024 SURGEON: Juan Antonio Neal MD INDICATIONS: The patient presents for evaluation of upper GI bleeding. Full consent has been obtained from him for this, including risks of bleeding and perforation. PREOPERATIVE DIAGNOSIS: POSTOPERATIVE DIAGNOSIS: Upper gastrointestinal bleeding. PROCEDURE PERFORMED: Esophagogastroduodenoscopy with biopsies. ESTIMATED BLOOD LOSS: COMPLICATIONS: ANESTHESIA: Monitored anesthesia care. ASSISTANTS: SPECIMENS: PREOPERATIVE DIAGNOSES: Upper gastrointestinal bleeding, duodenal ulcer, hiatal hernia. DESCRIPTION OF PROCEDURE: The patient was placed in the left lateral decubitus position. The Olympus video gastroscope was passed in the posterior oropharynx and upper esophagus under direct vision. The scope was passed slowly into the distal esophagus. The gastroesophageal junction appeared at 38 cm. There was no sign of any esophagitis nor [place] mucosa. The scope entered the stomach. There was a small hiatal hernia. The scope was advanced to pylorus and the duodenum was cannulated. In the proximal portion of the duodenal bulb, was evidence of some deformity and what appeared to be a circumferential area of some edema, friability, and slight ulceration. In the same area, was a discrete approximately 5 or 6 mm ulcer. The ulcer had a clean base without any visible vessel nor bleeding. The scope easily passed this area and then entered the 2nd and 3rd portions of duodenum, which appeared normal. The scope was withdrawn back in the stomach. The scope was readvanced back into the pylorus and again this area in the duodenal bulb was carefully inspected and there did not appear to be any sign of bleeding. The scope was withdrawn back in the stomach. The gastric antrum and body appeared normal with good peristalsis. Biopsies were obtained from the antrum. The scope was retroflexed, visualizing the proximal stomach carefully, which appeared normal, without any sign of mass or ulceration. The scope was straightened and withdrawn back to the esophagus. The esophageal mucosa appeared normal. The scope was withdrawn from the patient. He tolerated the procedure well and was returned to the recovery area in stable condition. IMPRESSION: 1. Duodenal bulb ulcer with some associated deformity. 2. Rule out Helicobacter pylori. 3. Small hiatal hernia. PLAN: The results of the biopsies will be checked. If H pylori is positive in the gastric biopsies, I would recommend treating that. He will be started on oral PPI and should continue that long-term and on a daily basis. He should avoid all aspirin, NSAIDs, alcohol, and tobacco. His diet will be advanced and he could be discharged by tomorrow. He will also be discharged tonight if so desired. MD SABIHA Goins/BREANA / [phone]
[2024-04-13] MEDS: 0.9 % Sodium Chloride Flush 3 ML SYRINGE IVFLUSH (17:39)
[2024-04-13] MEDS: Omeprazole 40 MG CAPSULE.DR PO (17:44)
[2024-04-13 17:55] LABS: Hematocrit 30.9 % (42.0-52.0); Hemoglobin 10.9 g/dl (14.0-18.0); Mean Corpuscular HGB Conc 35.3 g/dl (31.0-36.0); Mean Corpuscular Hemoglobin 30.3 pg (27.0-33.0); Mean Corpuscular Volume 85.8 fL (80.0-98.0); Mean Platelet Volume 11.7 fL (9.4-12.4); Platelet Count 168 X10*3/uL (160-400); Red Cell Distribution Width 12.1 % (11.0-16.0); White Blood Count 6.1 X10*3/uL (4.8-10.8)
[2024-04-14 03:35] VITALS: BP 108/51; PULSE 75; RESP 20; TEMP 37.1; O2SAT 97
[2024-04-14] MEDS: Omeprazole 40 MG CAPSULE.DR PO (05:29)
[2024-04-14] MEDS: Lactated Ringers 1,000 ML 80 ML IVCONT (05:31)
[2024-04-14 06:04] LABS: Hemoglobin 10.5 g/dl (14.0-18.0); Mean Corpuscular Hemoglobin 29.7 pg (27.0-33.0); Mean Platelet Volume 11.3 fL (9.4-12.4); Platelet Count 176 X10*3/uL (160-400); Red Blood Count 3.53 X10*6/uL (4.60-5.80); Red Cell Distribution Width 12.2 % (11.0-16.0); White Blood Count 7.1 X10*3/uL (4.8-10.8)
[2024-04-14 06:15] LABS: Anion Gap 10 (12-20); Blood Urea Nitrogen 12 mg/dL (9-16); Calcium 8.3 mg/dL (8.4-10.2); Carbon Dioxide 26 mmol/L (22-29); Chloride 108 mmol/L (96-108); Creatinine Clr Calc Pharmacy 122.9; Estimated Glomerular Filt Rate > 60; Glucose Random 102 mg/dL (60-115); Potassium 3.3 mmol/L (3.3-5.1); Sodium 141 mmol/L (135-145)
[2024-04-14 07:51] VITALS: BP 95/52; PULSE 66; RESP 18; TEMP 36.7; O2SAT 98
--- NOTE | 2024-04-14 08:03 | HO.POSTANES ---
Post Anesthesia Evaluation Post Anesthesia Evaluation Date of Service: 04/14/24 Vital Signs: Vital Signs Temp Pulse Resp BP Pulse Ox O2 Del Method 04/14/24 07:51 98.0 F 66 18 95/52 L 98 Room Air 04/14/24 03:35 98.8 F 75 20 108/51 L 97 Room Air 04/13/24 23:33 98.9 F 68 20 107/57 L 97 Room Air Anesthesia: Monitored Mental Status: Awake Pain Control: Satisfactory Nausea/Vomiting: None Hydration: Adequate Anesthesia-Related Issues: No Anes. Related Issues
[2024-04-14 11:21] VITALS: BP 107/59; PULSE 67; RESP 18; TEMP 36.6; O2SAT 97
--- NOTE | 2024-04-14 11:45 | PM.DS ---
DS: Providers Provider Date of Service: 04/14/24 Date of admission: 04/12/24 15:24 Date of discharge: 04/14/24 Primary care physician: None Physician Consults: 04/12/24 14:09 Consult to Gastroenterology Stat Consulting Provider: Jm Ortiz Reason for consultation: melena, anemia 04/12/24 15:24 Consult to Gastroenterology Routine Consulting Provider: Jm Ortiz Reason for consultation: GIB for eval and rec. DS: Diagnosis Discharge Diagnosis (1) Acute blood loss anemia: Status: Acute (2) Coffee ground emesis: Status: Acute (3) Melena: Status: Acute (4) Duodenal ulcer disease: Status: Acute DS: Summary Hospital Course Hospital Course: Admission note HPI A 28 years old male with PMH of PUD who is not taking Omeprazole presenting with 1 day of Hematemesis and MElena. The patient reports having similar incident in 2020 that required blood transfusion and EGD showing PUD at that time. treated with PPI with good response but for a while now he stopped taking PPI and has been taking Advil. In ED found to have positive occult stool and drop in Hb from around 16 to 13. Admitted for further work ip and management. Hospital course The patient was admitted for treatment of acute blood loss anemia secondary to upper GIB as Hb dropped to 11. Started on PPI IV with Carafate QID and IVF as he was seen by dr Neal from GI who did EGD showing Duodenal bulb with a narrow but circumferential area of edema and friability, along with an approximately 5mm area of ulceration with a clean base and no bleeding. To Check path and treat H.pylori if positive. Patient will follow with dr Neal for results. He was able to tolerate diet with no reported bleeding or vomiting. Hb remained stable. to be discharged on Omeprazole. Discharge plan avoid all aspirin, NSAIDs, alcohol, and tobacco. Take Omeprazole daily Follow with dr Neal for pathology result of Endoscopy and need of further treatment : Time Attestation Discharge Coordination Time (in mins): 36 Quality: Safe Use of Opioids Does Pt have an Active Cancer Diagnosis on the Problem List?: No Quality: Stroke Does the patient have a stroke diagnosis?: No Physical Exam Vital Signs: Vital Signs: Last Vital Signs Temp 97.8 F 04/14/24 11:21 Pulse 67 04/14/24 11:21 Resp 18 04/14/24 11:21 BP 107/59 L 04/14/24 11:21 Pulse Ox 97 04/14/24 11:21 O2 Del Method Room Air 04/14/24 11:21 BMI result Body Mass Index 23.7 Const: Other: Constitutional : Awake, interactive, not in distress Neck : Normal inspection, Supple Cardiovascular : RRR, no JVP, no lower extremity edema Respiratory : good bilateral air entry, no crackles, wheezes or rhonchi Gastrointestinal: soft, lax, Normal bowel sounds, Non tender Skin : Warm, Dry Neurological : Alert & oriented x3, No focal deficit DS: Data Data Completed and Pending Pending studies at discharge: Pending at discharge 04/13/24 15:40 Surgical [PTH] Routine Labs on day of discharge: Laboratory Results - last 24 hr 04/13/24 04/14/24 17:22 05:48 WBC 6.1 7.1 RBC 3.60 L 3.53 L Hgb 10.9 L 10.5 L Hct 30.9 L 30.0 L MCV 85.8 85.0 MCH 30.3 29.7 MCHC 35.3 35.0 RDW 12.1 12.2 Plt Count 168 176 MPV 11.7 11.3 Absolute Nucleated RBC 0.000 0.000 Nucleated RBC % (auto) 0.0 0.0 Sodium 141 Potassium 3.3 Chloride 108 Carbon Dioxide 26 Anion Gap 10 L BUN 12 Creatinine 0.85 Estim Creat Clear Calc 122.9 Estimated GFR > 60 Random Glucose 102 Calcium 8.3 L Discharge Plan Discharge Anticipated Discharge Date/Time: 04/13/24 15:18 Patient Disposition: Home, Self-Care Discharge Diagnosis: Blood loss anemia GI bleed Referrals: Physician,None [Primary Care Provider] - 1 Week Discharge Medications: New omeprazole 40 mg Capsule,Delayed Release(Dr/Ec) 40 mg PO DAILY@0630 Qty: 90 0RF Discharge Orders: Discharge Order (Routine); Ordered 04/14/24 Ordered By: Yu Quezada Diet: Advance to usual diet Activity on Discharge: As tolerated Stand Alone Forms: Patient Portal Discharge page Print Language: Ivorian Care Plan Goals: avoid all aspirin, NSAIDs, alcohol, and tobacco. Take Omeprazole daily Follow with dr Neal for pathology result of Endoscopy and need of further treatment : [phone] Health Concerns: Read below Plan of Treatment: . Assessment: .
--- NOTE | 2024-04-14 15:08 | MHC.CM.PN ---
Pt is medically cleared for discharge home self-care, pt has his own ride home.
== END 2024-04-14 12:34 | disposition home or self-care (01) | DRG 241 ==
LOC: HO.ED 14:37 → HO.EDOVER 15:34 → HO.IMC 19:27
PROVIDERS: Internal Medicine; Physician Assistant; Registered Nurse Emergency; Admitting Provider Student in an Organized Health Care Education/Training Program; Emergency Provider Student in an Organized Health Care Education/Training Program; Visit Provider Student in an Organized Health Care Education/Training Program
DX: K26.4 Chronic or unspecified duodenal ulcer with hemorrhage (principal); K44.9 Diaphragmatic hernia without obstruction or gangrene; D62 Acute posthemorrhagic anemia
CPT/HCPCS: 36415; 80048; 80053; 82272; 85025; 85027; 85610; 85730; 86850; 86900; 86901; 88305; 88342; 99285; J0171; J2003; J2405; J2470; J2704; J7120

== ENCOUNTER → 2024-04-12 15:24 | Outpatient (BNV) | payer MEDICAID, SELFPAY | PROVIDERS: Admitting Provider Student in an Organized Health Care Education/Training Program; Emergency Provider Student in an Organized Health Care Education/Training Program; Visit Provider Student in an Organized Health Care Education/Training Program | DX: D62 Acute posthemorrhagic anemia (principal); K92.0 Hematemesis; K92.1 Melena; K26.9 Duodenal ulcer, unspecified as acute or chronic, without hemorrhage or perforation | CPT/HCPCS: 99223; 99232; 99239 ==

== ENCOUNTER 2025-03-13 11:14 | Outpatient (REF) | payer MEDICAID, OTHER, SELFPAY | END 2025-03-13 11:15 | disposition home or self-care (01) | LOC: HO.HHCLNP 11:14 | PROVIDERS: Visit Provider Family Medicine | DX: R30.0 Dysuria (principal) | CPT/HCPCS: 87086 ==

== ENCOUNTER 2025-04-18 11:06 | Outpatient (REF) | payer MEDICAID, OTHER, SELFPAY ==
--- NOTE | ~2025-04-18 | US_ITS ---
EXAMINATION: US pelvis LIMITED CLINICAL INFORMATION: inguinal ring/canal tenderness, right, COMPARISON: None available. TECHNIQUE: Grayscale and color Doppler imaging was performed in the right inguinal region. FINDINGS: No mass, hernia, fluid collection, or other abnormalities are identified. Physiologic reniform normal sized, lymph nodes were visible. US/US pelvic limited IMPRESSION: Unremarkable examination. Electronically signed by: Ankur De La Torre MD 04/18/2025 11:55 AM EDT
== END 2025-04-18 11:07 | disposition home or self-care (01) ==
LOC: HO.US 11:06
PROVIDERS: PCP Family Medicine; Visit Provider Family Medicine
DX: R10.31 Right lower quadrant pain (principal)
CPT/HCPCS: 76857

== ENCOUNTER → 2025-04-18 11:08 | Outpatient (BNV) | payer SELFPAY | PROVIDERS: PCP Family Medicine; Visit Provider Radiology Diagnostic Radiology | DX: R10.813 Right lower quadrant abdominal tenderness (principal) | CPT/HCPCS: 76857 ==